=== PATIENT | male | born 1985 | race Caucasian/White ===

== ENCOUNTER 2024-02-11 13:42 | Emergency (ER) | payer OTHER ==
[~2024-02-11] VITALS: Ht 177.8 cm; Wt 80.0 kg
[~2024-02-11 13:42] MED LIST: ALBU6.7H15 IH
[2024-02-11 13:44] VITALS: O2SAT 96
[2024-02-11] MEDS: HYDROCODONE/ACETAMINOPHEN 7.5/325MG TABLET PO ONE (15:51)
[2024-02-11] MEDS ORDERED: METH-653 MT (15:57)
[2024-02-11] MEDS ORDERED: LIDO1ADH23 TP (15:57)
[2024-02-11] MEDS ORDERED: IBUP-2028 MT (15:57)
[2024-02-11] MEDS: IBUPROFEN 600MG TABLET PO ONE (16:29)
[2024-02-11 17:01] VITALS: BP 129/83; PULSE 94; RESP 18; TEMP 36.72516; O2SAT 97
== END 2024-02-11 17:10 | disposition home or self-care (01) ==
LOC: ER 14:05
DX: M79.10 Myalgia, unspecified site (principal); G31.89 Other specified degenerative diseases of nervous system
CPT/HCPCS: 73502; 73552; 71045; 73030; 73060; 73070; 73090; 73100; 73560; 73590; 73610; 70450; 72125; 99284; Z7610